=== PATIENT | female | born 2000 | race Caucasian/White ===

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

== ENCOUNTER 2021-01-15 09:45 | Outpatient (REF) | payer MEDICAID, SELFPAY ==
[2021-01-15 18:56] LABS: HCT 39.8 % (36.0-46.0); HGB 13.2 g/dL (11.2-15.7); MCH 29.5 pg (27.0-33.0); MCHC 33.2 % (32.0-36.0); MPV 10.3 fL (8.0-11.0); Platelet Count 224 10^3/uL (130-400); RBC 4.47 10^6/uL (3.93-5.22); RDW 11.5 % (11.7-14.6); RDW-SD 37.5 fL; WBC 6.37 10^3/uL (4.4-10.8)
[2021-01-15 19:22] LABS: ALT 27 U/L (14-59); AST 15 U/L (15-37); Albumin 3.7 g/dL (3.4-5.0); Alkaline Phosphatase 64 U/L (46-116); Anion Gap 0.4 mmol/L (3-11); BUN 15 mg/dL (7-18); Bilirubin, Total 0.5 mg/dL (0.2-1.0); CO2 31.6 mmol/L (21.0-32.0); CREATININE 0.9 mg/dL (0.55-1.02); Calcium 8.8 mg/dL (8.5-10.1); Chloride 106 mmol/L (98-107); Glucose 87 mg/dL (74-106); Potassium 3.8 mmol/L (3.5-5.1); Sodium 138 mmol/L (136-145); TSH 1.54 uIU/mL (0.36-3.74); Total Protein 6.7 g/dL (6.4-8.2)
[2021-01-15 19:33] LABS: Hemoglobin A1C 4.9 % (<5.7)
[2021-01-17 15:00] LABS: Chlamydia Result Negative (Negative); GC Result Negative (Negative)
== END 2021-01-15 09:46 | disposition home or self-care (01) ==
LOC: NCHCN 09:45
PROVIDERS: PCP Nurse Practitioner Family; Visit Provider Nurse Practitioner Family
DX: R53.83 Other fatigue (principal); Z11.3 Encounter for screening for infections with a predominantly sexual mode of transmission; Z68.34 Body mass index [BMI] 34.0-34.9, adult; Z13.1 Encounter for screening for diabetes mellitus; Z00.00 Encounter for general adult medical examination without abnormal findings
CPT/HCPCS: 80053; 85027; 87491; 87591; 83036; 84443

== ENCOUNTER 2022-01-23 15:57 | Outpatient (REF) | payer MEDICAID, SELFPAY ==
--- NOTE | 2022-01-23 14:00 | PAPFT_PTH ---
PATIENT: Kathy Irizarry LOC: [facility]#:[id number] AGE/SX: 21/F ROOM: RE01/23/[address]: Geneva Morales : 2000 BED: DIS: 01/23/2022 SPEC #: [id number] RECD: 01/24/22 13:12 STATUS: DAVID REQ #: [id number] TIAGO: 01/23/22 14:[address] Cytology RECD BY: Hailey Chase ENTERED: 01/24/22 13:12 SP TYPE: PAPFT OTHR DR: Chloe Rodriguez Tissues: 1 - CX/ENDOCX FOR PAP SMEARS Procedures: PAP THIN PREP/UVM Screening Comments: [id number] (CHLAMYDIA/GC)
[2022-01-25 15:41] LABS: Chlamydia Result Negative (Negative); GC Result Negative (Negative)
== END 2022-01-23 15:58 | disposition home or self-care (01) ==
LOC: NCHCN 15:57
PROVIDERS: PCP Nurse Practitioner Family; Visit Provider Nurse Practitioner Family
DX: Z12.4 Encounter for screening for malignant neoplasm of cervix (principal); Z11.3 Encounter for screening for infections with a predominantly sexual mode of transmission
CPT/HCPCS: 87491; 87591; 88142

== ENCOUNTER 2024-07-27 08:28 | Emergency (ER) | payer OTHER, SELFPAY ==
[2024-07-27] VITALS (30 sets, daily range): BP systolic 116–162; BP diastolic 66–97; PULSE 71–120; RESP 11–31; TEMP 36.1–36.4; O2SAT 96–100
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
[2024-07-27] MEDS: fentaNYL 100 MCG/2 ML VIAL 50 MCG IVP ×5 (08:40→11:01)
[2024-07-27 08:43] LABS: HCT 42.8 % (36.0-46.0); HGB 14.4 g/dL (11.2-15.7); MCH 30.3 pg (27.0-33.0); MCHC 33.6 % (32.0-36.0); MCV 90 fL (80-95); MPV 10.1 fL (8.0-11.0); Platelet Count 347 10^3/uL (130-400); RBC 4.76 10^6/uL (3.93-5.22); RDW 11.7 % (11.7-14.6); RDW-SD 38.3 fL; WBC 13.15 10^3/uL (4.4-10.8)
[2024-07-27] MEDS: Omnipaque 350 MG/ML 100 ML BTL IJ (08:48)
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
[2024-07-27] MEDS: Normal Saline - Diluent 50 ML VIAL IJ (08:49)
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
[2024-07-27 09:06] LABS: ALT 43 U/L (14-59); AST 23 U/L (15-37); Albumin 3.7 g/dL (3.4-5.0); Alkaline Phosphatase 83 U/L (46-116); Anion Gap 13.7 mmol/L (3-11); BUN 14 mg/dL (7-18); Bilirubin, Total 0.8 mg/dL (0.2-1.0); CO2 23.3 mmol/L (21.0-32.0); Calcium 8.8 mg/dL (8.5-10.1); Chloride 105 mmol/L (98-107); Estimated GFR 80.68 (mL/min/1.73m2); Glucose 202 mg/dL (74-106); Lipase 19 U/L (<78); Sodium 142 mmol/L (136-145); Total Protein 6.8 g/dL (6.4-8.2)
[2024-07-27] MEDS: ACETAMINOPHEN 1,000 MG/100 ML BAG 400 MG IVPB (09:56)
--- NOTE | 2024-07-27 09:57 | NUR.NOTE ---
Called [facility] to have them push images [place] [facility] @ [phone] Faxed demographics to [facility] @ [phone], I waited for the updated face sheet from [facility] to send.
[2024-07-27] MEDS: Diph,Pertuss(Acell),Tet Vac/Pf 0.5 ML SYR IM (10:36)
[2024-07-27 10:44] LABS: Bilirubin Negative (Negative); Blood Small (Negative); Clarity Clear (Clear); Glucose 100 mg/dL (Negative); Ketones Negative (Negative); Leukocyte Esterase Negative (Negative); Nitrite Positive (Negative); Urobilinogen 0.2 mg/dL (Up to 0.2)
[2024-07-27] MEDS: Ondansetron 4 MG/2 ML VIAL (11:01)
[2024-07-27 11:05] LABS: Bacteria Moderate HPF (Negative); Epithelial Cells Rare HPF (Negative); Mucus Moderate (Negative); WBC 0-2 HPF (0-5)
[2024-07-27 11:06] LABS: C & S Indicated? No; Casts 0-2 Coarse Granular LPF (Negative)
== END 2024-07-27 11:04 | disposition short-term general hospital (02) ==
PROVIDERS: Emergency Provider Nurse Practitioner Family
DX: S32.038A Other fracture of third lumbar vertebra, initial encounter for closed fracture (principal); S00.81XA Abrasion of other part of head, initial encounter; S30.811A Abrasion of abdominal wall, initial encounter; V48.6XXA Car passenger injured in noncollision transport accident in traffic accident, initial encounter; Z23 Encounter for immunization
CPT/HCPCS: 00123; 12001; 36415; 51702; 51798; 74177; 80053; 81025; 83690; 85027; 86850; 86900; 86901; 90471; 90715; 96365; 96372; 96375; 96376; 99285; 70450; 71260; 72125; 81003; 81015; J0131; J2405; J3010; J3490

== ENCOUNTER 2024-11-20 22:52 | Emergency (ER) | payer MEDICAID, SELFPAY ==
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
[2024-11-20 23:01] VITALS: BP 147/78; PULSE 92; RESP 19; TEMP 36.6; O2SAT 98
[2024-11-20 23:36] LABS: Abs Immature Grans 0.05 10^3/uL (0.0-0.06); HCT 41.9 % (36.0-46.0); HGB 13.9 g/dL (11.2-15.7); Immature Grans % 0.5 %; MCH 27.2 pg (27.0-33.0); MCHC 33.2 % (32.0-36.0); MCV 82 fL (80-95); MPV 9.7 fL (8.0-11.0); Platelet Count 264 10^3/uL (130-400); RBC 5.11 10^6/uL (3.93-5.22); RDW 13.5 % (11.7-14.6); RDW-SD 40.2 fL; WBC 9.49 10^3/uL (4.4-10.8)
[2024-11-20] MEDS: Normal Saline - Diluent 50 ML VIAL IJ (23:38)
--- NOTE | 2024-11-20 23:46 | W.ED.GENAD ---
Discharge Plan Disposition Patient Disposition: Home Condition: Good Discharge Details Clinical Impression: Nausea & vomiting, Acute hypokalemia Primary Care Provider: [facility] Provider: Brock Armijo Home Meds and New Rx's Prescriptions: No Action gabapentin 300 mg capsule 900 mg PO TID Patient Comments: TAKE 3 CAPSULES BY MOUTH THREE TIMES DAILY sennosides [senna] 8.6 mg tablet 17.2 mg PO QHS Patient Comments: TAKE 2 TABLETS BY MOUTH ONCE DAILY AT BEDTIME famotidine 20 mg tablet 20 mg PO DAILY Patient Comments: TAKE 1 TABLET BY MOUTH ONCE DAILY Nexplanon 68 mg implant 1 implant subdermal ONCE Rx Instructions: as a single dose Discharge Instructions Instructions: High Potassium Diet, Nausea and vomiting in adults Additional Instructions: At this time your CAT scan shows no evidence of significant abnormality. Your potassium levels were slightly low. Please drink plenty of fluids and stay well-hydrated. Please try to have a high potassium diet for the next week or so. Try to stick with a bland diet for the next 2 to 3 days and take a probiotic to help reinitiate your gut health. If you notice any worsening of your symptoms, or any new symptoms such as vomiting, diarrhea, fever, chills, shortness of breath, chest pain, numbness, weakness, or fainting , please return immediately to the emergency department for reevaluation. Please follow up with your primary care provider as soon as possible for reassessment and reevaluation. As always, it was a pleasure participating in your medical care today. Discharge Data Discharge Date/Time-TO BE ENTERED AT DEPARTURE: 11/21/24 03:08 HPI General Date/Time Provider Initiated Documentation: 11/20/24 23:09. HPI Narrative: This is a pleasant 24-year-old female with a past medical history of previous L3 lumbar spine fracture, who presents today for evaluation of nausea and vomiting. Patient states that about 20 hours ago at around 3 AM she woke up and felt notably nauseous and began having vomiting. Vomiting continued throughout the day tonight, with roughly 30 episodes. She denies fever or chills. She denies blood in her vomit. She denies any excessive diarrhea. No other sick contacts. Patient states that when she did vomit she also feels quite numb and tingly everywhere. No loss of consciousness. No chest pain or shortness of breath no other complaints at this time. She admits to generalized abdominal achiness but no focal abdominal pain. No recent foreign travel. Related Data Home Medications ?Medication ?Instructions ?Recorded ?Confirmed etonogestrel 68 mg subdermal 1 implant subdermal ONCE 07/27/24 11/20/24 implant (Nexplanon) famotidine 20 mg tablet 20 mg PO DAILY 11/20/24 11/20/24 gabapentin 300 mg capsule 900 mg PO TID 11/20/24 11/20/24 sennosides 8.6 mg tablet (senna) 17.2 mg PO QHS 11/20/24 11/20/24 Allergies Allergy/AdvReac Type Severity Reaction Status Date / Time Penicillins Allergy Other (See Verified 07/27/24 10:15 Comment) General Stated Complaint: Nausea/Vomit/Diar LIANE: 3 Exam Narrative Exam Narrative: 1.Const: Well-nourished, Well-developed, appearing stated age 2.Eyes: PERRL, no conjunctival injection, and symmetrical lids. 3.ENT: Atraumatic external nose and ears. Notably dry MM. Neck: Symmetric, trachea midline, No thyromegaly. 4.CVS: +S1/S2, Peripheral pulses 2+ and equal in all extremities. Brisk capillary refill in all extremities. 5.RESP: Unlabored respiratory effort. Clear to auscultation bilaterally. No wheezes rales or rhonchi 6.GI: Soft, Nontender/Nondistended, No hepatosplenomegaly. No guarding or rebound. No pain at McBurney's point, negative Hackett sign 7.MSK: Normocephalic/Atraumatic, Extremities w/o deformity or ttp No cyanosis or clubbing, Normal movement of all extremities 8.Skin: Warm, Dry. No rashes or lesions. 9.Neuro: director of casework services II-XII grossly intact. Sensation grossly intact, no focal neurologic deficits. All 6 cardinal planes of vision are fully intact. No evidence of rotatory or vertical nystagmus. The patient demonstrated a normal [id number], good dexterity. There was no evidence of dysdiadochokinesia. Patient was able to ambulate without difficulty. There was no wide-based gait. Romberg testing was normal. [id number] testing was normal. Sensation was intact bilaterally as well as muscle strength bilaterally for all extremities. Patient was able to verbalize butter cup with no slurring, or miss pronunciation. She denies feeling baseline diminished sensation in her lower extremities bilaterally, but she states that this is unchanged. No acute component. No change in sensation. Patient demonstrates good rectal tone, no diminished perirectal sensation. 10.Psych: (AAO) x3. Appropriate mood and affect Course Vital Signs Vital signs: Vital Signs Temperature 36.6 C 11/20/24 23:01 Pulse 92 H 11/20/24 23:01 Respiratory Rate 19 11/20/24 23:01 Blood Pressure 147/78 H 11/20/24 23:01 Pulse Oximetry 98 11/20/24 23:01 Temperature 36.6 C 11/20/24 23:01 Temperature Source Temporal Artery Scan 11/20/24 23:01 Pulse 92 H 11/20/24 23:01 Respiratory Rate 19 11/20/24 23:01 Blood Pressure 147/78 H 11/20/24 23:01 Blood Pressure Position Sitting 11/20/24 23:01 Pulse Oximetry 98 11/20/24 23:01 Oxygen Delivery Method Room Air 11/20/24 23:01 Oxygen Flow Rate 0 11/20/24 23:01 Pain Level 10 11/20/24 23:01 Lab/Test Results Lab/Test Results: Laboratory Tests Range/Units 11/20/24 23:30 WBC (4.4-10.8) 10^3/uL 9.49 RBC (3.93-5.22) 10^6/uL 5.11 Hgb (11.2-15.7) g/dL 13.9 Hct (36.0-46.0) % 41.9 MCV (80-95) fL 82 MCH (27.0-33.0) pg 27.2 MCHC (32.0-36.0) % 33.2 RDW (11.7-14.6) % 13.5 Plt Count (130-400) 10^3/uL 264 MPV (8.0-11.0) fL 9.7 Immature Gran % % 0.5 Neutrophils % % 77.4 Lymphocytes % % 14.9 Monocytes % % 6.8 Eosinophils % % 0.1 Basophils % % 0.3 Nucleated RBC % (0.0-0.3) % 0.0 Absolute Neutrophils (1.2-6.7) 10^3/uL 7.34 H Absolute Lymphocytes (1.2-3.4) 10^3/uL 1.41 Absolute Monocytes (0.1-0.8) 10^3/uL 0.65 Absolute Eosinophils (0.0-0.7) 10^3/uL 0.01 Absolute Basophils (0.0-0.2) 10^3/uL 0.03 Medical Decision Making This is a pleasant 24-year-old female with a past medical history of previous L3 lumbar spine fracture, who presents today for evaluation of nausea and vomiting. Patient states that about 20 hours ago at around 3 AM she woke up and felt notably nauseous and began having vomiting. Vomiting continued throughout the day tonight, with roughly 30 episodes. She denies fever or chills. She denies blood in her vomit. She denies any excessive diarrhea. No other sick contacts. Patient states that when she did vomit she also feels quite numb and tingly everywhere. No loss of consciousness. No chest pain or shortness of breath no other complaints at this time. She admits to generalized abdominal achiness but no focal abdominal pain. No recent foreign travel. Physical exam demonstrates a well-appearing female, no guarding or rebound. No signs of an acute surgical abdomen. Notably dry mucous membranes. No abdominal tenderness. No neurologic deficit. No diminished pulses. Symptoms are concerning for mild gastroenteritis, less likely obstruction. Electrolyte abnormalities certainly of concern especially with the intermittent tingling and vomiting. Will evaluate for these etiologies, rehydrate, give antiemetics, monitor closely and reassess. 1:20 AM Laboratory workup demonstrates no white count bandemia or significant left shift. Electrolytes all normal except for slightly low potassium at 3.2. Anion gap is 15, lipase normal, magnesium level normal. CT scan shows some fluid in the colon suggesting diarrhea, but no evidence of obstruction or other significant acute abnormality. On reassessment after antiemetics and fluids patient is feeling much better. She feels well and feels comfortable going home. Symptoms appear inconsistent with ischemia, obstruction, or other significant acute life-threatening component. Patient is tolerating p.o. Patient will be discharged home. Discussed red flags which return. I have extensively reviewed the treatment plan and discharge instructions with the patient. I have addressed all patient concerns at this time. The patient was made aware of what symptoms to monitor for that would warrant a return to the emergency department. Discussed the plan with the patient, they demonstrate verbal understanding and agreement with our assessment and plan at this time. The documentation in this chart was dictated using [employer] dictation software. Please excuse any dictation errors. FINDINGS: Lungs: Lung bases clear. Liver: Normal appearing liver. Gallbladder and biliary ducts: Gallbladder partially obscured by artifact but grossly unremarkable, as seen. No calcified gallstones or biliary dilatation. Pancreas: Pancreas partially obscured by artifact but grossly unremarkable, as seen. Spleen: Normal appearing spleen. Adrenal glands: Normal appearing adrenal glands. Kidneys and ureters: Kidneys partially obscured by artifact but grossly unremarkable, as seen. No hydronephrosis or ureterectasis. Stomach and bowel: No oral contrast. Stomach partially decompressed. No small bowel dilatation to suggest obstruction. Colon almost completely evacuated of formed fecal material. Fluid throughout the proximal colon suspicious for diarrhea or impending diarrhea. No evidence of diverticulitis or colitis. Appendix: Appendix partially obscured but normal in caliber and appearance through its visualized portion. Intraperitoneal space: No gross ascites or free air. Vasculature: Normal caliber abdominal aorta. Lymph nodes: Scattered small mesenteric lymph nodes, nonspecific. Urinary bladder: Urinary bladder partially collapsed but grossly unremarkable, as seen. Reproductive: Anteverted uterus, partially obscured but normal in size. Ovaries partially obscured and not well evaluated but not grossly enlarged. Bones/joints: No acute fracture seen among the bones of the abdomen or pelvis. Prior partial corpectomy at L3 with posterior L1-L5 fusion and placement of a vertical surgical strut at L3. Soft tissues: No significant ventral or inguinal hernia. IMPRESSION: No acute bowel pathology demonstrated. Colon largely well evacuated of fecal material. Fluid in the proximal colon suggesting diarrhea or impending diarrhea. Clinical correlation recommended. Thank you for allowing us to participate in the care of your patient. Dictated and Authenticated by: Samuel Figueredo MD 11/21/2024 1:12 AM Eastern Time ([place] & [place]) COUNT INCLUDES THE [facility] All Active Problems (Updated 11/21/24 @ 01:24 by Brock Armijo DO) Acute hypokalemia (Acute) Nausea & vomiting (Acute) Social History Smoking/Tobacco Use Status: Never Smoking risk assessment performed?: Yes Alcohol Intake: never Drug use: Daily Substance use type: marijuana Details: 1 joint/day Housing: house Do you feel safe at home: Yes Do you feel safe in your relationship?: Yes Additional Social history: lives with mom
[2024-11-20 23:52] LABS: ALT 31 U/L (14-59); AST 20 U/L (15-37); Albumin 4.5 g/dL (3.4-5.0); Alkaline Phosphatase 113 U/L (46-116); Anion Gap 15.1 mmol/L (3-11); BUN 15 mg/dL (7-18); Bilirubin, Total 1.1 mg/dL (0.2-1.0); CO2 23.9 mmol/L (21.0-32.0); Calcium 9.5 mg/dL (8.5-10.1); Chloride 103 mmol/L (98-107); Estimated GFR 91.55 (mL/min/1.73m2); Glucose 103 mg/dL (74-106); Lipase 15 U/L (<78); Magnesium 1.8 mg/dL (1.8-2.4); Potassium 3.2 mmol/L (3.5-5.1); Sodium 142 mmol/L (136-145); Total Protein 7.9 g/dL (6.4-8.2)
[2024-11-21 00:11] LABS: Glucose Negative (Negative)
[2024-11-21] MEDS: Normal Saline 1,000 ML 1000 ML IV (00:12)
[2024-11-21] MEDS: Ondansetron 4 MG/2 ML VIAL IVP ×2 (00:12→02:06)
[2024-11-21 00:13] LABS: C & S Indicated? No; RBC Negative HPF (0-2); WBC Negative HPF (0-5)
[2024-11-21] MEDS: Omnipaque 350 MG/ML 100 ML BTL 75 ML IJ (00:15)
[2024-11-21] MEDS: POTASSIUM CHLORIDE 20 MEQ/100 ML BAG 50 MEQ IV_INF (00:53)
[2024-11-21] MEDS: Lactated Ringers 1,000 ML 1000 ML IV (00:53)
--- NOTE | 2024-11-21 01:13 | DI.VRAD_ITS ---
PROCEDURE INFORMATION: Exam: CT Abdomen And Pelvis With Contrast Exam date and time: 11/21/2024 12:22 AM Age: 24 years old Clinical indication: Other: Vomiting, generalized abd pain, recent spinal FX; Prior surgery; Surgery date: 1-6 months TECHNIQUE: Imaging protocol: Computed tomography of the abdomen and pelvis with contrast. Contrast material: OMNIPAQUE 350; Contrast volume: 75 ml; Contrast route: INTRAVENOUS (IV); COMPARISON: CT CHEST/ABD/PEL W 07/27/2024 8:53 AM FINDINGS: Lungs: Lung bases clear. Liver: Normal appearing liver. Gallbladder and biliary ducts: Gallbladder partially obscured by artifact but grossly unremarkable, as seen. No calcified gallstones or biliary dilatation. Pancreas: Pancreas partially obscured by artifact but grossly unremarkable, as seen. Spleen: Normal appearing spleen. Adrenal glands: Normal appearing adrenal glands. Kidneys and ureters: Kidneys partially obscured by artifact but grossly unremarkable, as seen. No hydronephrosis or ureterectasis. Stomach and bowel: No oral contrast. Stomach partially decompressed. No small bowel dilatation to suggest obstruction. Colon almost completely evacuated of formed fecal material. Fluid throughout the proximal colon suspicious for diarrhea or impending diarrhea. No evidence of diverticulitis or colitis. Appendix: Appendix partially obscured but normal in caliber and appearance through its visualized portion. Intraperitoneal space: No gross ascites or free air. Vasculature: Normal caliber abdominal aorta. Lymph nodes: Scattered small mesenteric lymph nodes, nonspecific. Urinary bladder: Urinary bladder partially collapsed but grossly unremarkable, as seen. Reproductive: Anteverted uterus, partially obscured but normal in size. Ovaries partially obscured and not well evaluated but not grossly enlarged. Bones/joints: No acute fracture seen among the bones of the abdomen or pelvis. Prior partial corpectomy at L3 with posterior L1-L5 fusion and placement of a vertical surgical strut at L3. Soft tissues: No significant ventral or inguinal hernia. IMPRESSION: No acute bowel pathology demonstrated. Colon largely well evacuated of fecal material. Fluid in the proximal colon suggesting diarrhea or impending diarrhea. Clinical correlation recommended. Dictated and Authenticated by: Samuel Figueredo MD. Orderin Aleksander Gutiérrez MD
[2024-11-21] MEDS: Metoclopramide 10 MG/2 ML VIAL IVP (02:35)
[2024-11-21] MEDS: Ondansetron O.D.T. 4 MG TABEF, 3 TABS/BTL PO (02:35)
[2024-11-21 03:07] VITALS: BP 132/78; PULSE 58; RESP 17; TEMP 37.2; O2SAT 98
== END 2024-11-21 03:08 | disposition home or self-care (01) ==
PROVIDERS: Emergency Provider Student in an Organized Health Care Education/Training Program
DX: R11.2 Nausea with vomiting, unspecified (principal); E87.6 Hypokalemia
CPT/HCPCS: 80053; 83690; 96365; 96366; 96375; 96376; 99285; 74177; 81003; 81015; 83735; 85025; J2405; J2765; J3480; J3490